=== PATIENT | male | born 1995 | race Native Hawaiian/Other Pacific Islander ===

== ENCOUNTER 2020-11-06 19:26 | Emergency (ER) | payer SELFPAY ==
[~2020-11-06] VITALS: Ht 170.1 cm; Wt 65.0 kg
--- NOTE | 2020-11-06 19:59 | ED General ---
General Stated Complaint: SOA Source of Information: Patient Exam Limitations: No Limitations History of Present Illness Date Seen by Provider: Nov 06, 2020 Time Seen by Provider: 19:58 Initial Comments To ER with private vehicle with sudden onset shortness of breath while at work at [employer] just prior to arrival no history of lung disease no fever no chills has been feeling well prior to this. Timing/Duration: 1/2 Hour Severity: Moderate Associated Systoms: Shortness of Air Allergies and Home Medications Allergies Coded Allergies: No Known Drug Allergies (Unverified , 11/06/20) Patient Home Medication List Home Medication List Reviewed: Yes Review of Systems Review of Systems Constitutional: see HPI EENTM: see HPI Respiratory: no symptoms reported Cardiovascular: no symptoms reported Genitourinary: no symptoms reported Musculoskeletal: no symptoms reported Skin: no symptoms reported Psychiatric/Neurological: See HPI Hematologic/Lymphatic: No Symptoms Reported Immunological/Allergic: no symptoms reported Physical Exam Vital Signs Capillary Refill : Height, Weight, BMI Height: '" Weight: lbs. oz. kg; BMI Method: General Appearance: No Apparent Distress, WD/WN, Anxious (Heart rate 84 oxygen saturation 100% on room air), Thin Eyes: Bilateral Eye Normal Inspection, Bilateral Eye PERRL Respiratory: Lungs Clear (Lungs are clear with good air movement), Normal Breath Sounds, No Accessory Muscle Use, No Respiratory Distress Cardiovascular: Regular Rate, Rhythm, Normal Peripheral Pulses Gastrointestinal: Normal Bowel Sounds, Non Tender, Soft Extremity: Normal Capillary Refill, Normal Inspection Neurologic/Psychiatric: Alert, Oriented x3 Skin: Normal Color, Warm/Dry Progress/Results/Core Measures Suspected Sepsis SIRS Temperature: Pulse: Respiratory Rate: Blood Pressure / Mean: Results/Orders Lab Results Laboratory Tests Test 11/06/20 20:08 Range/Units SARS-CoV-2 RNA (RT-PCR) Not Detected Not Detecte My Orders Orders - JORGE CONWAY APRN Covid 19 Inhouse Test (11/06/20 19:44) Cbc With Automated Diff (11/06/20 19:53) Chest 1 View, Ap/Pa Only (11/06/20 19:53) Alprazolam Tablet (Xanax Tablet) (11/06/20 20:00) Ua Culture If Indicated (11/06/20 21:27) Medications Given in ED Current Medications Medications Dose Ordered Sig/Melody Route Start Time Stop Time Status Last Admin Dose Admin Alprazolam 0.25 mg ONCE ONCE PO 11/06/20 20:00 11/06/20 20:01 DC 11/06/20 20:20 0.25 MG Vital Signs/I&O Capillary Refill : Departure Communication (Admissions) He feels better after the Xanax. Shortness of breath is essentially gone. Oxygen saturation remained 100%. He is also worried about some athlete's foot he has on his feet and a rash on his penis. He also states that he had some bloody urine today. On exam, he does have jock itch. Erythematous thickened scaly skin in the inguinal folds. No other lesions or sores. Urine looks clear but will send it down for urinalysis. Impression Primary Impression: Tinea cruris Additional Impressions: Dyspnea Anxiety Disposition: HOME, SELF-CARE Condition: Stable Departure-Patient Inst. Decision time for Depature: 21:15 Referrals: NO,LOCAL PHYSICIAN (PCP/Family) Primary Care Physician Patient Instructions: Anxiety, Adult (DC) Add. Discharge Instructions: 1. Mix the 2 creams together and apply twice a day for 2 weeks. Scripts Clotrimazole/Betamethasone Dip (Clotrimazole-Betamethasone Crm) 15 Gm Cream..g. 15 GM TP BID, #1 EA Prov: JORGE CONWAY [employer]PERATING 11/06/20 Mupirocin (Mupirocin) 22 Gm Oint...g. 22 GM TP BID, #1 EA Prov: JORGE CONWAY [employer] 11/06/20 JORGE CONWAY [employer] Nov 06, 2020 19:59
[2020-11-06] MEDS ORDERED: ALPRAZolam 0.25 MG (XANAX) TAB PO ONE (20:00)
--- NOTE | 2020-11-06 21:13 | Diagnostic Imaging Report ---
PATIENT HISTORY: SOA. TECHNIQUE: Single frontal view of the chest. COMPARISON: None. FINDINGS: The lung volumes are normal. No focal consolidation is seen. No large pleural effusion or pneumothorax is seen. The cardiomediastinal silhouette is normal in size and contour. No acute osseous abnormality is seen. IMPRESSION: No acute pulmonary abnormality seen. Dictated by: Dictated on workstation # [id number]
[2020-11-06] MEDS ORDERED: CLOT15CR6 TP (21:34)
[2020-11-06] MEDS ORDERED: MUPI22OI2 TP (21:34)
[2020-11-06 21:37] LABS: BILIRUBIN,URINE NEGATIVE (NEGATIVE); CLARITY,URINE CLEAR; COLOR,URINE YELLOW; GLUCOSE, URINE (UA) NEGATIVE (NEGATIVE); KETONES,URINE NEGATIVE (NEGATIVE); LEUKOCYTE ESTERASE ,URINE NEGATIVE (NEGATIVE); NITRITE,URINE NEGATIVE (NEGATIVE); PH,URINE 7.5 (5-9); PROTEIN,URINE NEGATIVE (NEGATIVE)
[2020-11-06 21:48] LABS: BACTERIA,URINE NEGATIVE /HPF; RBC,URINE 0-2 /HPF; WBC,URINE 0-2 /HPF
[2020-11-06 21:49] LABS: URINE OTHER FEW SPERM /HPF
[2020-11-06 22:56] VITALS: BP 112/71
== END 2020-11-06 21:47 | disposition home or self-care (01) ==
LOC: ER 19:28
DX: B35.6 Tinea cruris (principal); R06.00 Dyspnea, unspecified; F41.9 Anxiety disorder, unspecified; Z20.822 Contact with and (suspected) exposure to COVID-19
CPT/HCPCS: 71045; 81000; 87636